=== PATIENT | male | born 1945 | race Asian ===

== ENCOUNTER 2021-12-08 10:02 | Day surgery (SDC) | payer OTHER ==
[~2021-12-08] VITALS: Ht 152.4 cm; Wt 49.9 kg
[2021-12-08] MEDS ORDERED: MIDAZOLAM 2 MG/2 ML VIAL ONE (12:17)
[2021-12-08] MEDS ORDERED: fentaNYL citrate 0.05 MG/ML VIAL ONE (12:17)
[2021-12-08] MEDS ORDERED: LIDOCAINE 2% 100 MG/5 ML UJET TP ONE (12:17)
[2021-12-08] MEDS ORDERED: fentaNYL citrate 0.05 MG/ML VIAL IVP ONE (13:50)
[2021-12-08] MEDS ORDERED: MIDAZOLAM 2 MG/2 ML VIAL IVP ONE (13:50)
== END 2021-12-08 13:30 | disposition home or self-care (01) ==
LOC: MOR 10:02 → MMU 10:03 → MOR 13:30
PROVIDERS: ATTEND Internal Medicine Gastroenterology
DX: Z12.11 Encounter for screening for malignant neoplasm of colon (principal); R10.13 Epigastric pain; E11.9 Type 2 diabetes mellitus without complications; Z20.822 Contact with and (suspected) exposure to COVID-19; Z96.649 Presence of unspecified artificial hip joint; Z79.899 Other long term (current) drug therapy
CPT/HCPCS: 43235; 45378; 87426; J2250; J3010